=== PATIENT | female | born 1975 | race Caucasian/White ===

== ENCOUNTER 2017-03-18 13:33 | Emergency (ER) | payer SELFPAY ==
[2017-03-18 13:34] VITALS: BMI 53.1
[2017-03-18 13:51] VITALS: RESP 18
--- NOTE | 2017-03-18 15:01 | C.PDOC ---
History Of Present Illness 41 year old female presents to the ED for evaluation of interment right buttock pain that had been radiating to her right leg for around six months. Patient has been applying heating pads to the affected areas, but notes her symptoms have worsened. Patient is unable to take NSAIDS due to gastric bypass surgery. Patient denies fever, chills, and extremity numbness/weakness at this time. Time Seen by Provider: 03/18/17 14:46 Chief Complaint (Nursing): High Blood Pressure History Per: Patient History/Exam Limitations: no limitations Onset/Duration Of Symptoms: Hrs Current Symptoms Are (Timing): Still Present Additional History Per: Patient Past Medical History Reviewed: Historical Data, Nursing Documentation, Vital Signs Vital Signs: Last Vital Signs Temp 98.8 F 03/18/17 15:18 Pulse 61 03/18/17 15:18 Resp 18 03/18/17 15:18 BP 156/94 H 03/18/17 15:18 Pulse Ox 100 03/18/17 22:45 - Medical History PMH: Anemia, Arthritis, Asthma, Fibromyalgia, Gall Bladder Disease (PT. HAD CHOLECYSECTOMY), HTN, Migraine (Last episode 4 months ago), Rheumatoid Arthritis Denies: Chronic Kidney Disease Surgical History: Cholecystectomy, Endoscopy - [facility] Procedures ESOPHAGOGASTRODUODENOSCOPY [EGD] W/CLOSED BIOPSY (08/16/14) INJECT/INFUSE NEC (01/27/14) LAPAROSCOP LYSIS-PERITONEAL ADHES (10/08/14) LAPAROSCOPIC GASTROENTEROSTOMY (10/08/14) OTHER GASTROSCOPY (10/08/14) Family History: States: Unknown Family Hx - Social History Hx Tobacco Use: Yes Hx Alcohol Use: No Hx Substance Use: No - Immunization History Hx Tetanus Toxoid Vaccination: No Hx Influenza Vaccination: No Hx Pneumococcal Vaccination: No Review Of Systems Constitutional: Negative for: Fever, Chills Musculoskeletal: Positive for: Leg Pain (right), Other (right buttock pain ) Neurological: Negative for: Weakness, Numbness Physical Exam - Physical Exam Appears: Non-toxic, No Acute Distress Skin: Normal Color, Warm, Dry Eye(s): bilateral: Normal Inspection Oral Mucosa: Moist Neck: Supple Chest: Symmetrical, No Deformity, No Tenderness Cardiovascular: Rhythm Regular, No Murmur Respiratory: Normal Breath Sounds, No Rales, No Rhonchi, No Wheezing Extremity: Normal ROM, Tenderness (right buttock ), Capillary Refill (less than 2 seconds ) Neurological/Psych: Oriented x3, Normal Speech, Normal Cognition Gait: Steady ED Course And Treatment O2 Sat by Pulse Oximetry: 100 (on RA) Pulse Ox Interpretation: Normal Medical Decision Making Medical Decision Making: chronic sciatica for "years" continued heat therapy and no NSAIDS due to GBP surgery precautions ice pack given and therapy educated Will f/u with PMD for other chronic issues. Chronic pain syndromes to be addressed by PMD mild elev bp c/w pain syndromes and no cardiac s/s today, defer tx of mild elev bp in light of pain syndrome Disposition Doctor Will See Patient In The: Office Counseled Patient/Family Regarding: Studies Performed, Diagnosis - Disposition Referrals: Jameel Strom MD [Medical Doctor] - Disposition: HOME/ ROUTINE Disposition Time: 15:00 Condition: GOOD Additional Instructions: continue ice therapy to R buttock area 1/2 hour per hour, nothing hot Frozen vegetables to the R buttock alternating 14x/day will be very helpful. NO hot showers- heat therapies make inflammatory problems worse. Follow-up with your PMD as needed. Instructions: Piriformis Syndrome (ED) Forms: [employer] ([place]) - Clinical Impression Clinical Impression: Pyriformis syndrome - Scribe Statement The provider has reviewed the documentation as recorded by the Scribe (Susan Thomason) Provider Attestation: All medical record entries made by the Scribe were at my direction and personally dictated by me. I have reviewed the chart and agree that the record accurately reflects my personal performance of the history, physical exam, medical decision making, and the department course for this patient. I have also personally directed, reviewed, and agree with the discharge instructions and disposition.
[2017-03-18 15:21] VITALS: BP 156/94; PULSE 61; TEMP 98.8
[2017-03-18 19:29] VITALS: O2SAT 100
== END 2017-03-18 15:19 | disposition home or self-care (01) ==
LOC: C.ER 13:33
DX: G57.00 Lesion of sciatic nerve, unspecified lower limb (principal); I10 Essential (primary) hypertension; M06.9 Rheumatoid arthritis, unspecified; M79.7 Fibromyalgia; Z87.891 Personal history of nicotine dependence; Z98.84 Bariatric surgery status